=== PATIENT | female | born 1985 | race Caucasian/White ===

== ENCOUNTER 2018-05-04 21:00 | Emergency (ER) | payer MEDICAID ==
[~2018-05-04] VITALS: Ht 165.1 cm; Wt 83.9 kg
[2018-05-04 21:18] VITALS: BP 109/72
--- NOTE | 2018-05-04 21:20 | NUR ---
TO LOBBY A/W BED, AMBULATORY, VSS ERMD NOTED
--- NOTE | 2018-05-04 21:42 | NUR ---
PATIENT AMBULATED TO ER BED 11
--- NOTE | 2018-05-04 21:42 | NUR ---
PATIENT PRESENTS TO ED WITH N/V/D, RUNNING NOSE, COUGH, X1 WK. SKIN IS PINK/WARM/DRY; AAOX4 WITH EVEN AND STEADY GAIT; LUNGS WHEEZE BL WITH NONPRODUCTIVE COUGH; HR EVEN AND REGULAR; PT DENIES ANY FEVER, CP, SOB, AT THIS TIME; PATIENT STATES PAIN OF 0/10 AT THIS TIME; VSS; PATIENT POSITIONED FOR COMFORT; HOB ELEVATED; BEDRAILS UP X2; BED DOWN. ER MD MADE AWARE OF PT STATUS. CONTINUE TO MONITOR.
[2018-05-04 22:41] LABS: APPEARANCE,URINE CLEAR (CLEAR); BILIRUBIN,URINE NEGATIVE (NEGATIVE); BLOOD, URINE NEGATIVE (NEGATIVE); COLOR,URINE YELLOW (YELLOW); LEUKOCYTE ESTERASE ,URINE NEGATIVE (NEGATIVE); NITRITE, URINE NEGATIVE (NEGATIVE); UGLUCOSE NEGATIVE (NEGATIVE)
[2018-05-04 22:52] VITALS: BP 109/72
--- NOTE | 2018-05-04 22:52 | NUR ---
Patient discharged with v/s stable. Written and verbal after care instructions given and explained. Patient alert, oriented and verbalized understanding of instructions. Ambulatory with steady gait. All questions addressed prior to discharge. ID band removed. Patient advised to follow up with PMD. Rx of Motrin, Azithromycin, Prednisone, Albuterol, and Robitussin given. Patient educated on indication of medication including possible reaction and side effects. Opportunity to ask questions provided and answered.
== END 2018-05-04 22:52 | disposition home or self-care (01) ==
LOC: MED 21:00
DX: J40 Bronchitis, not specified as acute or chronic (principal); Z88.0 Allergy status to penicillin; Z88.8 Allergy status to other drugs, medicaments and biological substances
CPT/HCPCS: 36415; 71045; 81003; 84703; 99285

== ENCOUNTER 2019-03-10 22:15 | Emergency (ER) | payer MEDICAID ==
[~2019-03-10] VITALS: Ht 165.1 cm; Wt 94.8 kg
[2019-03-10 22:19] VITALS: BP 107/64
--- NOTE | 2019-03-10 22:24 | NUR ---
PT AMBULATED TO BED #11
--- NOTE | 2019-03-10 22:40 | NUR ---
PT TO ED WITH C/O DIZZINESS AND HEADACHE X 2 DAYS. NO N/V. PT REPORTS STARTING MENSTRUAL CYCLE AND FEELING DIZZY AFTERWARD. NO NEURO DEFECITS NOTED. PT PLACED INTO BED, PENDING MD TURNER.
[2019-03-11] MEDS ORDERED: KETOROLAC 60 MG/2 ML VIAL IM ONE (00:05)
[2019-03-11] MEDS ORDERED: MECLIZINE 25 MG TAB PO ONE (00:05)
[2019-03-11 01:19] VITALS: BP 110/72
== END 2019-03-11 01:21 | disposition home or self-care (01) ==
LOC: MED 22:15
DX: H81.10 Benign paroxysmal vertigo, unspecified ear (principal); R51 Headache; J45.909 Unspecified asthma, uncomplicated; Z88.0 Allergy status to penicillin; Z88.5 Allergy status to narcotic agent
CPT/HCPCS: 81002; 81025; 96372; 99283; J1885; J8597

== ENCOUNTER 2019-09-18 22:39 | Emergency (ER) | payer MEDICAID ==
[~2019-09-18] VITALS: Ht 165.1 cm; Wt 90.7 kg
[2019-09-18 22:50] VITALS: BP 124/73
--- NOTE | 2019-09-18 22:50 | NUR ---
TO BED # 02 AMBULATORY
--- NOTE | 2019-09-18 23:24 | NUR ---
34 Y/O F PRESENTS TO ED WITH C/O CHEST PAIN X1 HOUR SHUTTLECOCK FEATHER TRIMMER. PAIN LOCATED AT [facility], 6/10 PINCHING PAIN RADIATING TO LT ANTERIOR RIBS AND ARM. PT SELF MEDICATED WITH TYLENOL 1 HOUR SHUTTLECOCK FEATHER TRIMMER, NO RELIEF OF SYMPTOMS. +NAUSEA/DIARRHEA. AUSCULTATED HEART SOUNDS, REGULAR RATE AND RHYTHM. BI APPLICATION DEVELOPER ATTACHED TO PT. BEDRAILX2 UP. WILL CONTINUE TO MONITOR.
[2019-09-19 00:25] VITALS: BP 103/50
--- NOTE | 2019-09-19 00:37 | NUR ---
RAD AT BEDSIDE FOR CHEST XRAY.
[2019-09-19] MEDS: KETOROLAC 30 MG/ML VIAL IM ONE (00:56)
--- NOTE | 2019-09-19 01:15 | NUR ---
PT REPORTS DECREASED PAIN, 3/10. WILL CONTINUE TO MONITOR.
== END 2019-09-19 01:28 | disposition home or self-care (01) ==
LOC: MED 22:39
DX: M94.0 Chondrocostal junction syndrome [Tietze] (principal); J45.909 Unspecified asthma, uncomplicated; Z88.0 Allergy status to penicillin; Z88.8 Allergy status to other drugs, medicaments and biological substances
CPT/HCPCS: 71045; 93005; 96372; 99283; J1885; Q0092